=== PATIENT | female | born 1990 | race Caucasian/White ===

== ENCOUNTER 2021-06-15 11:41 | Day surgery (SDC) | payer OTHER ==
[2021-06-15 12:08] VITALS: BMI 25.3
[2021-06-15] MEDS ORDERED: hydrALAZINE 20 MG/ML VIAL SLOW IVP PRN (13:16)
== END 2021-06-15 15:30 | disposition home or self-care (01) ==
LOC: CSHLD/OP 11:41
PROVIDERS: ATTEND Obstetrics & Gynecology
DX: Z04.3 Encounter for examination and observation following other accident (principal); O34.211 Maternal care for low transverse scar from previous cesarean delivery; Z3A.24 24 weeks gestation of pregnancy; W21.05XA Struck by basketball, initial encounter; Y92.219 Unspecified school as the place of occurrence of the external cause
CPT/HCPCS: 36415; 85460; 90384; 96372; 99282

== ENCOUNTER 2021-09-17 11:36 | Inpatient (IN) | payer OTHER ==
[2021-09-17] MEDS ORDERED: hydrALAZINE 20 MG/ML VIAL SLOW IVP PRN ×3 (12:27→22:02)
[2021-09-17] MEDS ORDERED: Lactated Ringer's 1,000 ML IV SCH ×2 (12:45→16:00)
[2021-09-17 13:44] LABS: #Monocytes 0.9 10x3/uL (0.0-1.1); #Neutrophils 10.1 10x3/uL (1.5-8.4); %Basophils 0.1 % (0.0-2.0); %Eosinophils 0.1 % (0.0-6.0); %Lymphocytes 6.5 % (18.0-47.0); %Monocytes 7.4 % (0.0-10.0); %Neutrophils 85.1 % (40.0-75.0); Hemoglobin 11.4 g/dL (12.0-15.5); Mean Corpuscular HGB CONC 34.9 g/dL (32.0-36.0); Mean Corpuscular Hemoglobin 30.5 pg (27.0-33.0); Mean Corpuscular Volume 87.4 fl (81.6-98.3); Mean Platelet Volume 10.6 fl (7.4-10.4); Platelet Count 169 10x3/uL (150-450); RBC Distribution Width 12.1 % (11.5-14.5); Red Blood Cell (RBC) Count 3.74 10x6/uL (3.90-5.03); White Blood Cell (WBC) Count 11.9 10x3/uL (3.5-10.5)
[2021-09-17 13:54] LABS: ALT (SGPT) 10 U/L (8-55); AST (SGOT) 14 U/L (5-34); Albumin 3.3 g/dL (3.5-5.0); Alkaline Phosphatase 164 U/L (40-110); Anion Gap 14 mmol/L (10-20); BUN (Urea Nitrogen) 5 mg/dL (7.0-18.7); Bilirubin, Total 0.8 mg/dL (0.2-1.2); Calc. Creatinine Clearance 0 mL/min (70-130); Calcium 9.3 mg/dL (7.8-10.44); Carbon Dioxide 21 mmol/L (22-29); Chloride 103 mmol/L (98-107); Globulin 2.9 g/dL (2.4-3.5); Glucose 99 mg/dL (70-105); Potassium 3.2 mmol/L (3.5-5.1); Protein, Total 6.2 g/dL (6.0-8.3); Sodium 135 mmol/L (136-145)
[2021-09-17 14:21] LABS: SARS-CoV-2 NAA Rapid Test Not Detected (NotDetected)
[2021-09-17] MEDS ORDERED: Promethazine HCl 25 MG/ML VIAL IM PRN ×2 (16:00→22:14)
[2021-09-17] MEDS ORDERED: Ondansetron PF 4 MG/2 ML Vial IVP PRN ×2 (16:00→22:14)
[2021-09-17] MEDS ORDERED: Bicitra 30 ML UDCUP PO PRN (16:00)
[2021-09-17] MEDS ORDERED: ceFAZolin 2 GM/Dextrose 50 ML 2 GM in Premix Bag 1 BAG IVPB SCH (16:00)
[2021-09-17] MEDS ORDERED: Famotidine/PF 20 mg/2ml Vial SLOW IVP PRN (16:00)
[2021-09-17] MEDS ORDERED: Morphine PF 10 MG/10 ML VIAL ONE (16:28)
[2021-09-17] MEDS ORDERED: ceFAZolin 2 GM/Dextrose 50 ML IVPB ONE (16:33)
[2021-09-17] MEDS ORDERED: Phenylephrine 40 MG/NS 250 ML 250 ML ONE (16:35)
[2021-09-17] MEDS ORDERED: Oxytocin 10 UNITS/ML VIAL ONE (17:03)
[2021-09-17 17:08] VITALS: BMI 29.0
[2021-09-17 19:52] LABS: Syphilis Antibody Nonreactive (Nonreactive); Syphilis Antibody Index 0.04 S/CO (<1.00 Non-Reactive)
[2021-09-17 19:53] LABS: Hep B Surf Ag Non-Reactive S/CO (NonReactive)
[2021-09-17 19:55] LABS: HBSAg Index 0.18 S/CO (0-0.99)
[2021-09-17] MEDS ORDERED: NS w/ Oxytocin 30 units 500 ML ONE (21:55)
[2021-09-17] MEDS ORDERED: NS w/ Oxytocin 30 units 500 ML IV SCH (22:00)
[2021-09-17] MEDS ORDERED: HYDROcodone/Acetaminophen 5/325 mg Tablet PO PRN ×2 (22:02)
[2021-09-17] MEDS ORDERED: Lanolin Ointment 7 GM TUBE TOP PRN (22:02)
[2021-09-17] MEDS ORDERED: Bisacodyl 10 MG SUPP PR PRN (22:02)
[2021-09-17] MEDS ORDERED: diphenhydrAMINE 25 MG CAP PO PRN (22:02)
[2021-09-17] MEDS ORDERED: Boostrix 0.5 ML (Tdap) VIAL IM ONE (22:02)
[2021-09-17] MEDS ORDERED: Naloxone HCl 0.4 mg/ml Vial IVP PRN ×2 (22:14)
[2021-09-17] MEDS ORDERED: Promethazine HCl 25 MG SUPP PR PRN (22:14)
[2021-09-17] MEDS ORDERED: Ondansetron HCl/PF 4 MG/2 ML Vial IVP PRN (22:14)
[2021-09-17] MEDS ORDERED: Moisturizing Cream (Eucerin) 113 GM JAR TOP PRN (22:14)
[2021-09-17] MEDS ORDERED: diphenhydrAMINE 50 MG/ML VIAL IVP PRN (22:14)
[2021-09-17] MEDS ORDERED: Fentanyl 100 MCG/2 ML VIAL SLOW IVP PRN (22:14)
[2021-09-17] MEDS ORDERED: Naloxone HCl 0.4 mg/ml Vial IV PRN (22:14)
[2021-09-17] MEDS ORDERED: Meperidine HCl/PF 25 MG/ML VIAL SLOW IVP PRN (22:14)
[2021-09-17] MEDS ORDERED: Ibuprofen 800 MG TAB PO SCH (22:15)
[2021-09-17] MEDS ORDERED: Docusate 100 MG CAP PO SCH (22:15)
[2021-09-17] MEDS ORDERED: Ketorolac Tromethamine 30 MG/ML VIAL IVP SCH (22:15)
[2021-09-17] MEDS ORDERED: Communication Order-Pharmacy FS SCH (22:15)
[2021-09-17] MEDS ORDERED: Ferrous Sulfate 325 MG TAB PO SCH (22:15)
[2021-09-17] MEDS: Ketorolac Tromethamine 30 MG/ML VIAL IVP PRN (23:02)
[2021-09-18] MEDS: Ketorolac Tromethamine 30 MG/ML VIAL IVP PRN ×2 (04:50→13:36)
[2021-09-18 05:53] LABS: Hemoglobin 10.6 g/dL (12.0-15.5); Mean Corpuscular HGB CONC 34.1 g/dL (32.0-36.0); Mean Corpuscular Hemoglobin 30.2 pg (27.0-33.0); Mean Corpuscular Volume 88.6 fl (81.6-98.3); Mean Platelet Volume 10.4 fl (7.4-10.4); Platelet Count 135 10x3/uL (150-450); RBC Distribution Width 12.4 % (11.5-14.5); Red Blood Cell (RBC) Count 3.51 10x6/uL (3.90-5.03); White Blood Cell (WBC) Count 8.4 10x3/uL (3.5-10.5)
[2021-09-18] MEDS ORDERED: Ibuprofen 800 MG TAB PO SCH (06:00)
[2021-09-18] MEDS: HYDROcodone/Acetaminophen 5/325 mg Tablet PO PRN ×3 (08:17→17:52)
[2021-09-18] MEDS: Prenatal Vitamin 1 TAB PO SCH (08:18)
[2021-09-18] MEDS: Ferrous Sulfate 325 MG TAB PO SCH ×2 (08:19→23:19)
[2021-09-18] MEDS: Docusate 100 MG CAP PO SCH ×2 (08:28→21:49)
[2021-09-18] MEDS ORDERED: HYDROcodone/Acetaminophen 5/325 mg Tablet PO PRN ×2 (10:15)
[2021-09-18] MEDS: Simethicone Chewable 80 MG TAB PO PRN (21:49)
[2021-09-18] MEDS: Ibuprofen 800 MG TAB PO SCH (21:49)
[2021-09-19] MEDS: Ibuprofen 800 MG TAB PO SCH ×3 (05:27→21:40)
[2021-09-19] MEDS ORDERED: Ibuprofen 800 MG TAB PO SCH (06:00)
[2021-09-19] MEDS: Ferrous Sulfate 325 MG TAB PO SCH ×2 (09:53→21:40)
[2021-09-19] MEDS: Docusate 100 MG CAP PO SCH ×2 (09:59→21:40)
[2021-09-19] MEDS: Prenatal Vitamin 1 TAB PO SCH (09:59)
[2021-09-19] MEDS: Simethicone Chewable 80 MG TAB PO PRN ×3 (10:02→20:25)
[2021-09-19] MEDS: HYDROcodone/Acetaminophen 5/325 mg Tablet PO PRN ×2 (12:39→20:25)
[2021-09-20] MEDS: Ibuprofen 800 MG TAB PO SCH (05:41)
[2021-09-20 07:56] VITALS: BP 107/62; TEMP 98.2
[2021-09-20] MEDS: Prenatal Vitamin 1 TAB PO SCH (09:31)
[2021-09-20] MEDS: Docusate 100 MG CAP PO SCH (09:31)
[2021-09-20] MEDS: Simethicone Chewable 80 MG TAB PO PRN (09:31)
[2021-09-20] MEDS: Ferrous Sulfate 325 MG TAB PO SCH (09:33)
== END 2021-09-20 11:40 | disposition home or self-care (01) | DRG 788 ==
LOC: CSHLD/OP 11:36 → CSHLD 17:31 → CSHPP 21:56 → EDSTATUS 10-03 07:30
PROVIDERS: ADMIT Obstetrics & Gynecology; ATTEND Obstetrics & Gynecology
PROC: 10D00Z1 Extraction of Products of Conception, Low, Open Approach (ICD-10-PCS; principal; 2021-09-17)
PROC: 3E0334Z Introduction of Serum, Toxoid and Vaccine into Peripheral Vein, Percutaneous Approach (ICD-10-PCS; 2021-09-18)
DX: O34.211 Maternal care for low transverse scar from previous cesarean delivery (principal); O32.1XX0 Maternal care for breech presentation, not applicable or unspecified; O99.62 Diseases of the digestive system complicating childbirth; K66.0 Peritoneal adhesions (postprocedural) (postinfection); Z20.822 Contact with and (suspected) exposure to COVID-19; Z3A.37 37 weeks gestation of pregnancy; Z37.0 Single live birth; O26.893 Other specified pregnancy related conditions, third trimester; Z67.11 Type A blood, Rh negative
CPT/HCPCS: 36415; 51702; 71045; 80053; 85025; 85027; 85461; 86780; 86850; 86870; 86900; 86901; 87340; 90384; 96372; 99285; J0690; J1885; J2274; J2405; J2590

== ENCOUNTER 2022-08-20 04:02 | Emergency (ER) | payer OTHER ==
[2022-08-20] MEDS ORDERED: Morphine 4 MG/ML VIAL ONE (05:34)
[2022-08-20] MEDS ORDERED: Ondansetron PF 4 MG/2 ML Vial ONE (05:34)
[2022-08-20] MEDS ORDERED: Ketorolac Tromethamine 30 MG/ML VIAL ONE (05:34)
[2022-08-20 06:08] LABS: #Basophils 0.1 10x3/uL (0.0-0.2); #Eosinphils 0.1 10x3/uL (0.0-0.5); #Monocytes 0.8 10x3/uL (0.0-1.1); #Neutrophils 9.3 10x3/uL (1.5-8.4); %Basophils 0.8 % (0.0-2.0); %Eosinophils 1.1 % (0.0-6.0); %Lymphocytes 16.9 % (18.0-47.0); %Monocytes 6.1 % (0.0-10.0); %Neutrophils 74.9 % (40.0-75.0); Bilirubin Neg (Negative); Blood, Urine 250 (Negative); Clarity Cloudy (Clear); Glucose, Urine (Dipstick) Normal (Negative); Hemoglobin 13.6 g/dL (12.0-15.5); Ketone, Urine Negative (Negative); Leukocyte 500 (Negative); Mean Corpuscular HGB CONC 33.7 g/dL (32.0-36.0); Mean Corpuscular Hemoglobin 29.9 pg (27.0-33.0); Mean Corpuscular Volume 88.6 fl (81.6-98.3); Mean Platelet Volume 10.4 fl (7.4-10.4); Nitrite Negative (Negative); Platelet Count 202 10x3/uL (150-450); Protein, Urine (Dipstick) 500 mg/dl (Neg-Trace); RBC Distribution Width 12.2 % (11.5-14.5); Red Blood Cell (RBC) Count 4.55 10x6/uL (3.90-5.03); Urobilinogen Normal mg/dL (Less than 2); White Blood Cell (WBC) Count 12.4 10x3/uL (3.5-10.5); pH, Urine 6.5 (5.0-9.0)
[2022-08-20 06:16] LABS: BHCG - Serum Negative (NEGATIVE); Pregs Control Background? CLEAR/WHITE (CLR/WHITE); Pregs Control Bar Appear? YES (CONTROL BAR)
[2022-08-20 06:18] LABS: ALT (SGPT) 12 U/L (8-55); AST (SGOT) 16 U/L (5-34); Albumin 4.3 g/dL (3.5-5.0); Alkaline Phosphatase 55 U/L (40-110); Anion Gap 14 mmol/L (10-20); BUN (Urea Nitrogen) 13 mg/dL (7.0-18.7); Calc. Creatinine Clearance 0 mL/min (70-130); Calcium 9.4 mg/dL (7.8-10.44); Carbon Dioxide 24 mmol/L (22-29); Chloride 105 mmol/L (98-107); Estimated GFR 95; Globulin 2.7 g/dL (2.4-3.5); Glucose 89 mg/dL (70-105); Lipase 16 U/L (8-78); Potassium 3.8 mmol/L (3.5-5.1); Sodium 139 mmol/L (136-145)
[2022-08-20 06:19] LABS: Bacteria/HPF 4+ HPF (None Seen); RBC/HPF 0-3 HPF (0-3); Squamous Epithelial 0-3 HPF (0-3); WBC/HPF Greater than 50 HPF (0-3)
[2022-08-20 06:20] LABS: White Blood Cell Cast 0-3 LPF (None Seen)
[2022-08-20] MEDS ORDERED: cefTRIAXone (ROCEPHIN) 1 GM VIAL ONE (06:41)
[2022-08-20] MEDS ORDERED: Iopamidol 300 61% 100 ML VIAL FS ONE (09:48)
== END 2022-08-20 09:00 | disposition home or self-care (01) ==
LOC: CSHERS 04:02
DX: N39.0 Urinary tract infection, site not specified (principal); K21.9 Gastro-esophageal reflux disease without esophagitis
CPT/HCPCS: 74177; 80053; 81003; 81015; 83690; 84703; 85025; 87077; 87086; 87186; 96361; 96365; 96375; J0696; J1885; J2270; J2405; Q9967

== ENCOUNTER 2025-02-28 10:02 | Outpatient (CLI) | payer OTHER ==
[2025-02-28 10:59] LABS: Glucose, Urine (Dipstick) Normal (Negative); Leukocyte Negative (Negative); Protein, Urine (Dipstick) Negative (Neg-Trace); Specific Gravity, Urine 1.010 (1.005-1.030)
[2025-02-28 11:02] LABS: Hematocrit 40.9 % (34.9-44.5); Hemoglobin 13.3 g/dL (12.0-15.5); Mean Corpuscular Hemoglobin 29.8 pg (27.0-33.0); Mean Corpuscular Volume 91.5 fL (81.6-98.3); Platelet Count 223 10x3/uL (150-450); Red Blood Cell (RBC) Count 4.47 10x6/uL (3.90-5.03); White Blood Cell (WBC) Count 8.77 10x3/uL (3.5-10.5)
[2025-02-28 11:08] LABS: BHCG - Serum Negative (NEGATIVE); Pregs Control Background? CLEAR/WHITE (CLR/WHITE); Pregs Control Bar Appear? YES (CONTROL BAR)
== END 2025-02-28 10:03 | disposition home or self-care (01) ==
LOC: CSHLAB 10:02
PROVIDERS: ATTEND Obstetrics & Gynecology
DX: Z01.812 Encounter for preprocedural laboratory examination (principal); N93.9 Abnormal uterine and vaginal bleeding, unspecified; N92.0 Excessive and frequent menstruation with regular cycle
CPT/HCPCS: 81003; 84703; 85027

== ENCOUNTER 2025-03-04 05:43 | Day surgery (SDC) | payer OTHER ==
[2025-02-28 10:46] VITALS: BMI 23.1
[2025-03-04] MEDS ORDERED: Silver Nitrate Application 1 EACH ONE (06:41)
[2025-03-04] MEDS ORDERED: Lidocaine 1% PF 5 ML VIAL ONE (06:50)
[2025-03-04] MEDS ORDERED: PROPOFOL 40 ML ONE (06:50)
[2025-03-04] MEDS ORDERED: CEFAZOLIN 2 GM VIAL ONE (06:52)
[2025-03-04] MEDS ORDERED: Ketorolac Tromethamine 30 MG (1 mL) VIAL ONE (08:14)
[2025-03-04] MEDS ORDERED: HYDROcodone/Acetaminophen 7.5/325 mg Tablet ONE (08:37)
== END 2025-03-04 09:15 | disposition home or self-care (01) ==
LOC: CSHSDC 05:43
PROVIDERS: ATTEND Obstetrics & Gynecology
PROC: 0U5B8ZZ Destruction of Endometrium, Via Natural or Artificial Opening Endoscopic (ICD-10-PCS; principal; 2025-03-04)
DX: N84.0 Polyp of corpus uteri (principal); N93.9 Abnormal uterine and vaginal bleeding, unspecified; N92.0 Excessive and frequent menstruation with regular cycle
CPT/HCPCS: J1100; J1885; J2250; J2704